=== PATIENT | female | born 1950 | race Caucasian/White ===

== ENCOUNTER 2017-12-20 06:36 | Inpatient (IN) | payer OTHER, SELFPAY ==
[2017-12-06 10:44] VITALS: BMI 37.3
[2017-12-20] VITALS (18 sets, daily range): BP systolic 100–182; BP diastolic 59–97; PULSE 63–83; RESP 12–18; TEMP 36.3–37; O2SAT 88–97; BMI 37.3
[2017-12-20] MEDS: VANCOMYCIN 1,000 MG/200 ML FROZ.PIGGY 133.333 MG IV (07:10)
[2017-12-20] MEDS: LACTATED RINGERS 1,000 ML 42 ML IV ×2 (07:45→10:14)
[2017-12-20] MEDS: CEFAZOLIN 2 GM/100 ML FROZ.PIGGY IV ×3 (07:57→23:58)
--- NOTE | 2017-12-20 08:17 | PM.PREOP ---
Pre-operative Note Interval Note Pre-op Check: History & Physical Reviewed by Physician
--- NOTE | 2017-12-20 08:38 | SUR.OPER ---
Supine on padded OR bed. Pillow under head, arms secured on padded armboards <90 degree abduction. Safety belt across torso. Non-operative leg secured with tape over blanket over lower leg. Operative leg secured in DeMayo positioner. Foam padded brace at thigh of operative leg.
[2017-12-20] MEDS: BUPIVACAINE 0.25% W/ EPI 50 ML VIAL INJ (08:54)
[2017-12-20] MEDS: POVIDONE-IODINE 15 ML, SODIUM CHLORIDE 0.9% 250 ML TOP (08:55)
[2017-12-20] MEDS: BUPIVACAINE LIPOSOME 266 MG/20 ML VIAL INJ (08:55)
--- NOTE | 2017-12-20 11:06 | DI.RAD.S_ITS ---
PROCEDURE: XR KNEE LT 1TO2V INDICATIONS: 67 year-old female with left knee arthroplasty. TECHNIQUE: 2 postoperative view(s) of the knee acquired. COMPARISON: None available. FINDINGS: Bones: Patient is status post knee joint arthroplasty. Hardware components are in expected positions. Visualized bony structures are intact. Soft tissues: Overlying postoperative changes are noted, including intra-articular fluid and gas, and surgical drain. IMPRESSION: Status post left knee arthroplasty, with hardware components in expected positions. Dictated by: Mike Paredes M.D. on 12/20/2017 at 11:41 Approved by: Mike Paredes M.D. on 12/20/2017 at 11:42
--- NOTE | 2017-12-20 11:09 | P.OP_ITS ---
Operative Date/Time/Diagnoses - Date of procedure: 12/20/17 Time of procedure: 08:07 Pre-op diagnosis: Left knee OA Post-op diagnosis: same Procedure & Clinicians Procedure: Left total knee arthroplasty Same procedure as scheduled: Yes Indications: The patient has had progressively worsening left knee pain with radiographic changes consistent with arthritis. Non-operative management has failed and the patient has requested total knee replacement. The risks, benefits and alternatives to surgery were discussed with the patient prior to proceeding. Risks discussed included, but were not limited to, failure to relieve pain, stiffness, infection, nerve damage, deep venous thrombosis, pulmonary embolism, stroke, coma, heart attack, permanent paralysis and , as well as the potential need for eventual revision of the prosthetic. Surgeon: Shonda [facility] Risk Control Consultant: Deja Marin Anesthesia Type: General and Spinal Operative Notes Findings: Severe left knee osteoarthritis, good balance Closure Type: primary Specimen(s): none sent Implants & Drains: Felix and Nephew Evert BCS2 35 mm patella, size 5 left femur, size 3 tibia, +10 poly Applied: drain(s) Estimated Blood Loss (mL): 200 Tourniquet time (min): 85 Procedure in detail: The patient was seen in the pre-operative area, where the left knee was identified as the operative site and this was marked with my initials. The patient received pre-operative antibiotics, and was taken to the operating room and placed on the operative table in the supine position. After satisfactory anesthesia, a multimedia programmer out was performed. The left leg was encircled with a tourniquet about the proximal thigh, and the leg was prepared from the toes to the tourniquet with ChloroPrep in the usual fashion and draped through sterile drapes. The leg was elevated and exsanguinated with Eschmark bandage and the tourniquet inflated to [250] mmHg pressure. The knee was approached through an approximately 18 cm incision centered over the patella and carried into the knee through a medial parapatellar arthrotomy. The anterior osteophytes and soft tissues were removed. The patella was meticulously mobilized and osteophytes were removed. A caliper was used to measure the patella and [9] mm of bone were carefully resected. Drill holes were made for the patella and the overall patellar thickness was checked with the caliper to make sure that it had been reconstituted. Next, the rotational landmarks of [place] line and the transepicondylar axis were marked on the femur with electrocautery, and intramedullary guide holes for the femur was created. The distal femoral cut was made in 5 degrees of valgus using the intramedullary guide at the primary cut setting. The proximal tibial cut was then made using the extramedullary guide, matching the patient's [place] slope and taking 10 mm of bone off the less involved side. The extension gap was checked. Posteriorly any residual meniscus and soft tissue was carefully removed in the posterior capsule was injected with Exparel and Marcaine. Hemostasis was achieved posteriorly. The extension gap was checked with the gap corporate safety coordinator. Any additional soft tissue releases needed for balancing were performed. The rotation of the femoral component was confirmed with the gap balancing system. Measured resection in 3? of external rotation was also checked. The anterior, posterior and chamfer cuts were then made. The posterior osteophytes and soft tissues were then removed. The posterior capsule was injected with part of a mixture of 50 ml 0.25% Marcaine mixed with 20 ml Exparel for post- operative pain control. The remainder of this mixture was injected into the capsule and subcutaneous tissues during cement curing. Trial tibial and femoral components were then placed and the knee placed through a range of motion. Range of motion was [0-130], with good stability throughout the range. The trials were then removed, and the femoral hole plugged with a bone plug. The tibia was prepped after defining rotation and the trial reduction. The bone was prepared with pulsatile lavage, and dried with a sponge. The cement was as applied and the final prosthetics placed. Excess cement was removed during and after cement curing. After confirming there was no extruded cement posteriorly, the final tibial insert was placed. The knee was copiously irrigated and the tourniquet deflated. Hemostasis was obtained. A drain was placed and brought out superolaterally. The capsule was closed with interrupted # 1 black braided nylon. The subcutaneous tissue was closed with barbed sutures. The skin with a running 3-0 V-Lock suture and surgical glue. An Aquacel Ag dressing was applied and the patient was taken to recovery having tolerated the procedure well. Complications: none Condition: stable Disposition: PACU Plan for aftercare: The patient will be maintained on a standard total knee replacement protocol with weight bearing as tolerated. The patient will receive aspirin and sequential compression devices for DVT prophylaxis. The patient will be discharged home when safe for the home environment.
[2017-12-20] MEDS: ONDANSETRON 4 MG/2 ML INJ IV (13:01)
[2017-12-20] MEDS: LACTATED RINGERS 1,000 ML 125 ML IV ×2 (13:01→21:11)
--- NOTE | 2017-12-20 13:31 | PC.NURSE ---
Addendum entered by Velia Montejo R.N. 12/20/17 15:07: PATIENT CONTINUES W/ NAUSEA AND DIZZINESS W/ ANY MVMT OF HER HEAD UP OR DOWN. PAGED DR. SUAREZ AT 1445. AWAITING RESPONSE. BLADDER RETENTION, SCAN 703. IN AND OUT CATH 1000CC'S Original Note: PATIENT HAS FULL CMS. DENIES NUMBNESS OR TINGLING. HV UNCLAMPED AT 1230, RETURN OF SEROUS SANG. DRAINAGE, COMPRESSED. NAUSEA W/ SITTING UP TO ATTEMPT TO EAT LUNCH. RETURNED TO [facility]I-[facility]. GIVEN ZOFRAN. TAKING SMALL SIPS OF ENSURE. SCD'S ON. IVF INFUSING, JOSÉ MIGUEL W/ ACEWRAP CDI.
[2017-12-20] MEDS: ONDANSETRON 4 MG ODT PO (15:48)
--- NOTE | 2017-12-20 16:09 | PT.IPTN ---
Current Diagnoses Unilateral primary osteoarthritis, left knee (12/20/17) Surgery Performed Operation Date: 12/20/17 07:45 Actual Procedures p Total Knee Arthroplasty(Left) - hSonda Felix MD Physical Therapy Treatment Note M3 PT-IP Subjective Start: 12/20/17 16:08 Freq: NEEDED Status: Active Protocol: Document 12/20/17 16:09 AB (Rec: 12/20/17 16:09 AB [id number]) Subjective Physical Therapy Visit Type Type Patient Refusal Notes pt stated that she is too dizzy/nauseated and does not want to do PT at this time.
[2017-12-20] MEDS: METOCLOPRAMIDE 10 MG/2 ML INJ IV (16:45)
[2017-12-20] MEDS: ASPIRIN EC 81 MG TABLET PO (20:36)
[2017-12-20] MEDS: LORazepam 1 MG TABLET PO (20:36)
--- NOTE | 2017-12-20 20:48 | PC.NURSE ---
SHIFT NOTE Received pt c/o constant nausea despite previous administration of IV zofran. nausea increases with any movement, even just boosting/repositioning in bed. pt voicing concern about overall feeling groggy and that she has not felt this way with her previous surgery. administered PO zofran with litte effect. nofitied Dr. Razo, received order for PRN reglan which had minimal effect as well for controlling pt's nausea. Dr. Razo to cotact the anesthesiologist in regards to additional nausea orders. pt then with a slight anxiety attack and complaining of difficulty breathing,l that her jaw was tightening up, and feeling a lump in her chest. per pt and , pt has anxiety and usually takes ativan at home. Pt unable to use bedpan and adamant about attempting to use BSC. pt with large emesis episode when transferring to BSC, but states great relief afterwards, i feel 110% better! attempted to advance pt's diet as tolerated. c/o stiffness to L knee but no pain, numbness/tingling. Dr. Dai to enter orders to manage nausea. pt updated on medication options.
[2017-12-20] MEDS: ACETAMINOPHEN 325 MG TABLET 650 MG PO (23:59)
[2017-12-21] VITALS (7 sets, daily range): BP systolic 126–140; BP diastolic 66–75; PULSE 66–92; RESP 14–16; TEMP 36.2–36.9; O2SAT 89–99
[2017-12-21] MEDS: ACETAMINOPHEN 325 MG TABLET 650 MG PO ×2 (05:49→11:16)
[2017-12-21 06:46] LABS: Hematocrit 38.2 % (36-46); Hemoglobin 12.9 g/dL (12.0-16.0)
--- NOTE | 2017-12-21 08:44 | P.DS_ITS ---
History of Present Illness Date Patient Seen: 12/21/17 Time Patient Seen: 08:39 Chief complaint: [address]131 LEFT TOTAL KNEE ARTHROPLASTY Narrative: Patient is a 67-year-old female with history of left knee osteoarthritis. She failed conservative treatments and elected for a left total knee replacement with Dr. Felix. Discharge Providers Date of admission: 12/20/17 06:36 Primary care physician: James Owusu MD Consults: 12/20/17 11:59 Consult to Discharge Planning Routine Comment: Consult to Physical Therapy Evaluate & Treat Comment: Physician Instructions: postop TKA protocol Consult to Respiratory Therapy Evaluate & Treat Comment: Physician Instructions: Evaluate and treat Discharge provider: Deja Marin PA-C Summary Discharge Diagnosis: Left knee osteoarthritis Hospital Course: Patient was admitted and taken to the OR where she had a left total knee replacement by Dr. Phoenix. She recovered well and was transferred to the floor for further care. Night of postop day 1 she had a lot of nausea but by the morning it had resolved. She was eating and drinking well, pain under control, able to urinate w/o issues and was ready to be discharged home if cleared by PT. She already has her D/C medications. Status at Discharge Cognitive/behavioral status at discharge: Alert and orient x3. Functional status at discharge: uses cane/walker Overall status at discharge: patient is progressing back to baseline Time Spent with Patient Less than 30 minutes Exam Vital Signs (past 8 hours): Vital Signs - 8 hr 3 12/21/17 06:51 12/21/17 08:24 Temperature 97.9 F 97.1 F L Pulse Rate 92 H 70 Respiratory Rate 16 16 Blood Pressure 129/74 H 137/74 H Pulse Oximetry 94 97 Pulse Oximetry 97 Oxygen Delivery Method Nasal Cannula Oxygen Flow Rate 1 Narrative Exam Narrative: The patient is sitting in a chair. Alert and orient x3. Left knee dressing clean dry intact with an Cristofer bandage overwrap. Bilateral calves soft nontender. Neurovascular status intact. Left ankle strength 5/5. Hemovac drain in. Objective Labs Result Diagrams: 12/21/17 06:30 Labs: Laboratory Results - last 24 hr 12/21/17 06:30 Hgb 12.9 Hct 38.2 Discharge Plan Discharge Plan Patient Disposition: Home, Self-Care Discharge comment: Patient has discharge prescriptions are ready. Follow up with physical therapy next week. Start aspirin 81 mg twice a day for total 6 weeks, afterwards return to aspirin 81 mg daily. Discharge Med Rec/Prescriptions Prescriptions: New acetaminophen 325 mg Tablet 650 mg PO Q6HR Qty: 0 RF: 0 Continue fluoxetine 10 MG tablet 10 mg PO QDAY Qty: 0 RF: 0 hydrochlorothiazide 25 MG tablet 12.5 mg PO QDAY Qty: 0 RF: 0 lorazepam 1 MG tablet 1 mg PO HS Qty: 0 RF: 0 doxycycline hyclate 100 MG capsule 150 mg PO QDAY Qty: 0 RF: 0 hydrocortisone valerate 0.2 % cream 1 anabella Topical PRN PRN (Reason: psoriasis) Qty: 0 RF: 0 cholecalciferol (vitamin D3) [Vitamin D3] 1,000 unit Capsule 1,000 unit PO DAILY Qty: 0 RF: 0 cyanocobalamin (vitamin B-12) 1,000 MCG tablet extended release 1,200 mcg PO QDAY Qty: 0 RF: 0 potassium phosphate, monobasic [K-Phos Original] 500 MG tablet,soluble 595 mg PO QDAY Qty: 0 RF: 0 omega 6-nds-tak-fish oil [Fish Oil] 1,000 MG capsule 1,000 mg PO QDAY Qty: 0 RF: 0 biotin 5 MG tablet 5,000 mg PO QDAY Qty: 0 RF: 0 diphenhydramine-acetaminophen [Acetaminophen PM] 25-500 mg Tablet 2 tab PO BEDTIME PRN (Reason: Sleep) RF: 0 lorazepam 1 mg Tablet 1 mg PO DAILY RF: 0 Changed aspirin 81 MG tablet,delayed release (DR/EC) 81 mg PO BID Qty: 60 RF: 0 Follow up/Referrals: Shonda Felix MD [Physician] - (Follow-up at scheduled appointment time and date.) Provider Discharge Instructions Diet: Diet as Tolerated Activity: Activity as tolerated. Continue home exercises for ROM in knee. Foot pumps, get up every hour. Cold/Heat Therapy: Apply ice to left knee for pain and swelling as needed. Wound Care Report to your healthcare provider any signs of infection, such as:: chills, fever, night sweats, increased pain and unusual drainage Dressing: Leave dressing on until follow-up visit. May shower. Visit Report/Discharge Packet Instructions: DI for Knee Replacement Discharge Data Primary Care Provider: James Owusu Attending Provider: Shonda Feilx Admit Date/Time: 12/20/17 06:36 Quality VTE Deep Vein Thrombosis/Pulmonary Embolism Present on Admission: No
[2017-12-21] MEDS: FLUoxetine 10 MG CAPSULE PO (10:03)
[2017-12-21] MEDS: ASPIRIN EC 81 MG TABLET PO (10:03)
[2017-12-21] MEDS: FISH OIL 1,000 MG CAPSULE 1000 MG PO (10:03)
[2017-12-21] MEDS: DOCUSATE 100 MG CAPSULE PO (10:03)
[2017-12-21] MEDS: hydroCHLOROthiazide 12.5 MG CAPSULE PO (10:03)
[2017-12-21] MEDS: DOXYCYCLINE HYCLATE 100 MG TABLET 150 MG PO (10:03)
[2017-12-21] MEDS: CYANOCOBALAMIN (VITAMIN B-12) 500 MCG TABLET 1000 MCG PO (10:03)
[2017-12-21] MEDS: CHOLECALCIFEROL (VITAMIN D3) 1,000 UNIT TABLET 1000 UNIT PO (10:04)
--- NOTE | 2017-12-21 11:19 | PT.IIE ---
Current Diagnoses Unilateral primary osteoarthritis, left knee (12/20/17) Surgery Performed Operation Date: 12/20/17 07:45 Actual Procedures p Total Knee Arthroplasty(Left) - Shonda Felix MD Surgical History (Last Updated 12/06/17 @ 11:01 by Roselia Tom, RN) History of arthroplasty of right knee (Acute) History of arthroscopy of both knees (Acute) Medical History (Last Updated 12/06/17 @ 11:26 by Roselia Tom RN) Anxiety and depression (Acute) Arthritis (Acute) Bronchitis (Acute) Cataract (Acute) HTN (hypertension) (Acute) History of tumor (Acute) Pre-diabetes (Acute) Psoriasis (Acute) RBBB (right bundle branch block) (Acute) WOODY (stress urinary incontinence, female) (Acute) Tinnitus (Acute) Physical Therapy Inpatient Evaluation/Re-Eval M1 PT/OT-IP Prior Functional Status Start: 12/20/17 16:08 Freq: NEEDED Status: Active Protocol: Document 12/21/17 10:57 AB (Rec: 12/21/17 11:19 AB [id number]) Medical Review Prior Functional Status Medical History Reviewed Yes Mobility and Gait pt stated that she is independent with all mobilities and ambulation without AD Social History Household Members spouse Living Arrangements House Number of Floors (Floors) One Floor Number of Stairs To Enter/Railing? 1 step R rail Home Environment Tub/Shower Home Equipment Raised Toilet Seat w/Armrests Grab Bars In Shower Employment Status Retired M2 PT-IP Current Condition Start: 12/20/17 16:08 Freq: NEEDED Status: Active Protocol: Document 12/21/17 10:57 AB (Rec: 12/21/17 11:19 AB [id number]) Physical Therapy Current Condition Current Condition Evaluation Date 12/21/17 Treatment Diagnosis s/p TKA Onset Date 12/20/17 Weight Bearing Status Weight Bearing Status Weight Bear as Tolerated M3 PT-IP Subjective Start: 12/20/17 16:08 Freq: NEEDED Status: Active Protocol: Document 12/21/17 10:57 AB (Rec: 12/21/17 11:19 AB [id number]) Subjective Physical Therapy Visit Type Type Initial Evaluation Visit Start Time 09:10 Visit Stop Time 10:02 Total Visit Minutes 52 Number of ELECTROPHYSIOLOGY TECHNOLOGIST Visits 0 Physical Therapy Visit Comments Patient Comments pt wanting to go home today Therapy Pain Assessment Pain When Pain Assessed During Mobility Location Left Knee Intensity 2 Scale Used Numeric (1 - 10) Pain Management Techniques Apply Cold Timing of Activity with Medications M4 PT-IP Mobility and Gait Start: 12/20/17 16:08 Freq: NEEDED Status: Active Protocol: Document 12/21/17 10:57 AB (Rec: 12/21/17 11:19 AB [id number]) PT-Bed Mobility Assessment Supine to Sit Supine to Sit Standby Assistance Sit to Supine Sit to Supine Standby Assistance Scooting Scooting to Edge of Bed Contact Guard Assistance PT-Transfer Assessment Sit to and From Stand Sit to and from Stand Contact Guard Assistance Equipment Transfer Assistive Device Gait Belt Front Wheeled Walker Transfers Transfer Destination Bed Chair Toilet Transfer Technique Stand Step Pivot Transfer Ability Level of Assist Contact Guard Assistance Gait Assessment Gait Gait Assistance Required: Contact Guard Assist Distance (Feet) (feet) 75 Able to Maintain Weight Bearing Status Yes During Gait Assistive Devices Assistive Device Gait Belt Front Wheeled Walker Orthotic/Prosthetic Devices or Brace: No Gait Deviations General Gait Pattern Antalgic Decreased Stride Length Decreased Feet Clearance Factors Limiting Gait Function Factors Limiting Gait Function Decreased Activity Tolerance Decreased Strength Limited Range of Motion Pain Poor Balance Poor Safety Awareness Comments Gait Comments pt completed ambulation 75 ft x 2 using FWW CGA and cues. caregiver training conducted for sit <>stand, transfer and ambulation. spouse was able to assist pt. Stair Climbing Assessment Evaluation Level of Assist On Stairs Minimal Assistance Devices Stair Climbing Assistive Devices Front Wheel Walker Technique/Endurance Stair Climbing Direction Ascend and Descend Stair Climbing Technique Step to Step Number of Steps Climbed 2 Query Text: Stair Climbing Set # Repetitions (reps) 2 Comments Stair Climbing Comments caregiver training conducted for stair training and spouse was able to assist pt safely. PT-Balance Assessment Sitting Balance and Reactions Static Sitting Balance Ability Good Dynamic Sitting Balance Ability Good Standing Balance and Reactions Static Standing Balance Ability Fair Dynamic Standing Balance Ability Fair M5 PT-IP Objective Assessments Start: 12/20/17 16:08 Freq: NEEDED Status: Active Protocol: Document 12/21/17 10:57 AB (Rec: 12/21/17 11:19 AB [id number]) Orientation Orientation/Cognition Level of Alertness Alert Gross Range of Motion Lower Extremity ROM Assessment Left Impaired Strength Lower Extremity Strength Assessment Left Impaired Knee 3+/5 M6 PT-IP Treatment Start: 12/20/17 16:08 Freq: NEEDED Status: Active Protocol: Document 12/21/17 10:57 AB (Rec: 12/21/17 11:19 AB [id number]) Physical Therapy Treatment Education Education Provided Precautions Weight Bearing Status Post-Op Packet Safety M7 PT-IP Assessment and Plan Start: 12/20/17 16:08 Freq: NEEDED Status: Active Protocol: Document 12/21/17 10:57 AB (Rec: 12/21/17 11:19 AB [id number]) PT Summary Assessment and Plan Potential Rehabilitation Potential Good Status of Condition at Evaluation Evolving Summary Impairments Pain ROM Strength Balance Cognition Bed Mobility Transfers Gait Activity Tolerance Assessment Summary pt rquiring one person assist with mobility. caregiver training conducted and spouse was able to assist pt safely. Goals Bed Mobility Goal Standby Assistance Transfer Goal Standby Assistance Gait Goal Standby Assistance Gait Distance 100 Other Goals up/down 1 step using FWW SBA Days to Meet Goals 2 Frequency of Treatment Frequency Of Treatment Twice a Day Treatment Plan Physical Therapy Treatment Plan Bed Mobility Training Transfer Training Gait Training Therapeutic Exercise Balance Retraining Post Op Education Discharge Planning Hot or Cold Pack Neuromuscular Re-ed Coordination Retraining Manual Therapy Other Recommendations and Next Treatment ambulation Focus Recommendations To Nursing Amount of Assist Needed 1 Person Assist Discharge Recommendations PT Discharge Recommendations Home with Assistance Outpatient PT Provider Visit Care Team Role Provider Type James Owusu MD Family Provider Non-Staff Primary Care Provider Specialty: Medical Shonda Felix MD Admit Provider Physician Attending Provider Specialty: Orthopedic Surgery
--- NOTE | 2017-12-21 15:17 | CM.DANOTE ---
DC Assess: Met w/pt at bedside; Introduced myself and role of DC demand planner; Pt is alert and oriented; Supportive at bedside; PT assessed and recommends Home with assist w/Outpatient PT; Patient verbalized she has walker at home and has a PT appointment scheduled on 12/23 and 1st Post-OP appt scheduled on 12/27; Expressed bladder not feeling like it is emptying when urinating; Notified [facility] assigned nurse of patient expression of feeling like bladder not emptying fully; Plan: DC'd home with ;
== END 2017-12-21 11:34 | disposition home or self-care (01) | DRG 470 ==
PROVIDERS: Admitting Provider Orthopaedic Surgery; Family Provider Family Medicine; PCP Family Medicine; Visit Provider Orthopaedic Surgery
PROC: 0SRD0JZ Replacement of Left Knee Joint with Synthetic Substitute, Open Approach (ICD-10-PCS; CPT 27447; principal; 2017-12-20 07:45)
DX: M17.12 Unilateral primary osteoarthritis, left knee (principal); Z96.651 Presence of right artificial knee joint; E11.9 Type 2 diabetes mellitus without complications; I10 Essential (primary) hypertension; F32.9 Major depressive disorder, single episode, unspecified; Z87.891 Personal history of nicotine dependence; E66.9 Obesity, unspecified; Z68.37 Body mass index [BMI] 37.0-37.9, adult; R11.0 Nausea
CPT/HCPCS: 36415; 73560; 85014; 85018; 94760; 97162; 97530; C1776; A9270; C9290; J0690; J2250; J2274; J2405; J2704; J2765; J3370